=== PATIENT | male | born 1950 | race Caucasian/White ===

== ENCOUNTER → 2016-10-12 | Outpatient (CLI) | payer MEDICARE, OTHER | END | disposition home or self-care (01) | LOC: PCVCCLINIC 10:51 | PROVIDERS: ATTEND Internal Medicine | DX: I25.810 Atherosclerosis of coronary artery bypass graft(s) without angina pectoris (principal); I35.0 Nonrheumatic aortic (valve) stenosis; E78.00 Pure hypercholesterolemia, unspecified; I13.0 Hypertensive heart and chronic kidney disease with heart failure and stage 1 through stage 4 chronic kidney disease, or unspecified chronic kidney disease; E11.22 Type 2 diabetes mellitus with diabetic chronic kidney disease; I50.33 Acute on chronic diastolic (congestive) heart failure; N18.4 Chronic kidney disease, stage 4 (severe); I73.9 Peripheral vascular disease, unspecified; I77.89 Other specified disorders of arteries and arterioles; Z98.890 Other specified postprocedural states; Z79.4 Long term (current) use of insulin; Z95.1 Presence of aortocoronary bypass graft; Z87.891 Personal history of nicotine dependence; Z79.82 Long term (current) use of aspirin; Z88.8 Allergy status to other drugs, medicaments and biological substances | CPT/HCPCS: 80061; 93005; G0463 ==

== ENCOUNTER → 2016-11-16 | Outpatient (CLI) | payer MEDICARE, OTHER | END | disposition home or self-care (01) | LOC: PCVCCLINIC 15:19 | PROVIDERS: ATTEND Internal Medicine Cardiovascular Disease | DX: I25.10 Atherosclerotic heart disease of native coronary artery without angina pectoris (principal); I35.0 Nonrheumatic aortic (valve) stenosis; I65.23 Occlusion and stenosis of bilateral carotid arteries; E11.8 Type 2 diabetes mellitus with unspecified complications; R06.09 Other forms of dyspnea; E78.00 Pure hypercholesterolemia, unspecified; I10 Essential (primary) hypertension; I73.9 Peripheral vascular disease, unspecified; G47.30 Sleep apnea, unspecified; R94.31 Abnormal electrocardiogram [ECG] [EKG]; Z95.1 Presence of aortocoronary bypass graft; Z87.891 Personal history of nicotine dependence; Z79.84 Long term (current) use of oral hypoglycemic drugs; Z79.82 Long term (current) use of aspirin; Z79.899 Other long term (current) drug therapy | CPT/HCPCS: 93005; G0463 ==

== ENCOUNTER → 2017-03-30 | Outpatient (CLI) | payer MEDICARE, OTHER | END | disposition home or self-care (01) | LOC: PCVCIMAG 07:36 | DX: I25.810 Atherosclerosis of coronary artery bypass graft(s) without angina pectoris (principal); I12.9 Hypertensive chronic kidney disease with stage 1 through stage 4 chronic kidney disease, or unspecified chronic kidney disease; I65.23 Occlusion and stenosis of bilateral carotid arteries; N18.3 Chronic kidney disease, stage 3 (moderate); I73.9 Peripheral vascular disease, unspecified; E78.00 Pure hypercholesterolemia, unspecified; E11.22 Type 2 diabetes mellitus with diabetic chronic kidney disease; I08.3 Combined rheumatic disorders of mitral, aortic and tricuspid valves; G47.30 Sleep apnea, unspecified; R94.31 Abnormal electrocardiogram [ECG] [EKG]; Z98.890 Other specified postprocedural states; Z86.79 Personal history of other diseases of the circulatory system; Z95.1 Presence of aortocoronary bypass graft; Z87.891 Personal history of nicotine dependence; Z79.82 Long term (current) use of aspirin; Z79.4 Long term (current) use of insulin | CPT/HCPCS: 80061; 93005; 93306; 93880; 93925; G0463 ==

== ENCOUNTER → 2017-05-09 | Outpatient (CLI) | payer MEDICARE ==
[~2017-05-09] MED LIST: DIAZEPAM 10 MG TABLET.; EPINEPHrine 1 MG/ML VIAL; EPTIFIBATIDE BOLUS 2,000 MCG/ML 10ML VIAL. IV; HEPARIN SODIUM 5,000 UNIT/ML VIAL for PCVC.; IODIXANOL 270 MG/ML 100 ML VIAL.; IV NORMAL SALINE 1000ML BAG 1,000 ML; LIDOCAINE 1% Multi-Dose 20 ML VIAL.; MIDAZOLAM HCL/PF 2 MG/2 ML VIAL.; PRASUGREL 10 MG TABLET.; ceFAZolin SODIUM 1 GM VIAL; fentaNYL PF VIAL 100 MCG/2 ML VIAL; hydrALAZINE 20 MG/ML VIAL.
== END | disposition home or self-care (01) ==
LOC: PCVCINTER 08:30
DX: I70.213 Atherosclerosis of native arteries of extremities with intermittent claudication, bilateral legs (principal); I25.10 Atherosclerotic heart disease of native coronary artery without angina pectoris; I70.1 Atherosclerosis of renal artery
CPT/HCPCS: 36252; 37186; 37225; 75716; 76937; 99152; 99153; C1725; C1751; C1757; C1760; C1769; C1885; C1887; C1894; C2623; J0171; J0360; J0690; J1327; J1644; J2250; J3010; J7030

== ENCOUNTER → 2017-08-11 | Outpatient (CLI) | payer MEDICARE | END | disposition home or self-care (01) | LOC: PCVCIMAG 15:28 | DX: I65.23 Occlusion and stenosis of bilateral carotid arteries (principal); I73.9 Peripheral vascular disease, unspecified; I77.9 Disorder of arteries and arterioles, unspecified; I25.10 Atherosclerotic heart disease of native coronary artery without angina pectoris; I10 Essential (primary) hypertension; E11.8 Type 2 diabetes mellitus with unspecified complications; E78.00 Pure hypercholesterolemia, unspecified; I70.8 Atherosclerosis of other arteries; Z87.891 Personal history of nicotine dependence; Z79.899 Other long term (current) drug therapy; Z79.82 Long term (current) use of aspirin; Z88.8 Allergy status to other drugs, medicaments and biological substances; Z79.4 Long term (current) use of insulin | CPT/HCPCS: 93880; 93925; G0463 ==

== ENCOUNTER → 2017-09-29 | Outpatient (CLI) | payer MEDICARE | END | disposition home or self-care (01) | LOC: PCVCCLINIC 11:08 | DX: I25.10 Atherosclerotic heart disease of native coronary artery without angina pectoris (principal); I10 Essential (primary) hypertension; I73.9 Peripheral vascular disease, unspecified; E78.00 Pure hypercholesterolemia, unspecified; I27.20 Pulmonary hypertension, unspecified; I35.0 Nonrheumatic aortic (valve) stenosis; I65.23 Occlusion and stenosis of bilateral carotid arteries; R09.89 Other specified symptoms and signs involving the circulatory and respiratory systems; Z98.890 Other specified postprocedural states; Z95.1 Presence of aortocoronary bypass graft; Z88.8 Allergy status to other drugs, medicaments and biological substances; Z87.891 Personal history of nicotine dependence; Z79.899 Other long term (current) drug therapy; Z79.4 Long term (current) use of insulin | CPT/HCPCS: 80061; 93005; G0463 ==

== ENCOUNTER → 2018-04-25 | Outpatient (CLI) | payer MEDICARE ==
--- NOTE | 2018-04-25 15:45 | PCVCIMAG ---
APPROVED REPORT Study performed: 04/25/2018 13:11:37 EXAM: Comprehensive 2D, Doppler, and color-flow Echocardiogram Patient Location: Echo lab Status: routine BSA: 2.12 HR: 81 bpmBP: 112/78 mmHg Rhythm: NSR Other Information Study Quality: Adequate Technically limited study due to lung disease. Indications Pulmonary Hypertension CAD cabg, rheumatic aortic stenosis, rheumatic mitral stenosis 2D Dimensions IVSd: 16.61 (7-11mm)LVOT Diam: 21.32 (18-24mm) LVDd: 45.93 mm PWd: 16.27 (7-11mm) LVDs: 38.69 (25-40mm) Left Atrium: 44.10 (27-40mm) Aortic Root: 35.63 mm LV Single Plane 4CH: 41.80 % LV Single Plane 2CH: 52.34 % Biplane EF: 48.1 % Volumes Left Atrial Volume (Systole) Single Plane 4CH: 116.85 mLSingle Plane 2CH: 118.62 mL LA ESV Index: 61.00 mL/m2 Aortic Valve AoV Peak Abhay.: 4.07 m/s AO Peak Gr.: 66.42 mmHgLVOT Max P.48 mmHg AO Mean Gr.: 35.02 mmHgLVOT Mean P.59 mmHg AO V2 Mean: 2.77 m/sLVOT Max V: 1.17 m/s AO V2 VTI: 87.67 cm MARVIN (VTI): 1.19 [id number] V1 VTI: 29.26 cm MARVIN Vmax: 1.03 cm2 Mitral Valve MV Peak Gr.: 19.79 mmHg MV Mean Gr.: 9.48 mmHgE/A Ratio: 0.9 MV Decel. Time: 385.38 ms MV E Max Abhay.: 1.72 m/s MV A Abhay.: 1.92 m/s MV Max Abhay.: 2.22 m/s MV VTI: 533.51 mm MVA VTI: 195.79 mm2 MV PHT: 111.76 ms MVA (PHT): 1.89 cm2 IVRT: 103.81 ms Pulmonary Valve PV Peak Abhay.: 1.00 m/sPV Peak Gr.: 4.01 mmHg Pulmonary Vein P Vein S: 0.28 m/sP Vein A: 0.26 m/s P Vein D: 0.35 m/sP Vein A Dur.: 124.6 msec P Vein S/D Ratio: 0.80 Tricuspid Valve TR Peak Abhay.: 3.84 m/s TR Peak Gr.: 58.87 mmHg Left Ventricle The left ventricle is normal size. There is normal LV segmental wall motion. There is normal left ventricular wall thickness. Left ventricular systolic function is normal. The left ventricular ejection fraction is within the normal range. LVEF is 50-55%. Grade II - pseudonormal filling dynamics. Right Ventricle The right ventricle is normal size. The right ventricular systolic function is normal. Atria Left atrium is severely dilated. Right atrium is moderately dilated. Aortic Valve The aortic valve is severely calcified. No aortic regurgitation is present. There is moderate to severe valvular aortic stenosis. Calculated aortic valve area is 1 cm2 with maximum pressure gradient of 66 mmHg and mean pressure gradient of 35 mmHg. Mitral Valve Moderately calcified mitral valve with moderate mitral stenosis. There is trace mitral valve regurgitation noted. Moderate mitral stenosis. MVA by PHT is 1.9 cm2 with mean gradient of 9.5 mmHg and peak gradient of 19.8 mmHg. Tricuspid Valve The tricuspid valve is normal in structure. Moderate tricuspid regurgitation with PAP of 68 mmHg. Pulmonic Valve The pulmonary valve is normal in structure. There is no pulmonic valvular regurgitation. Great Vessels The aortic root is normal in size. IVC is normal in size and collapses >50% with inspiration. Pericardium There is no pericardial effusion. There is no pleural effusion. <Conclusion> The left ventricle is normal size. LVEF is 50-55%. Grade II - pseudonormal filling dynamics. The right ventricle is normal size. Left atrium is severely dilated. Right atrium is moderately dilated. Left atrium is severely dilated. Right atrium is moderately dilated. The aortic valve is severely calcified. There is moderate to severe valvular aortic stenosis. Calculated aortic valve area is 1 cm2 with maximum pressure gradient of 66 mmHg and mean pressure gradient of 35 mmHg. Moderately calcified mitral valve with moderate mitral stenosis. There is trace mitral valve regurgitation noted. Moderate mitral stenosis. MVA by PHT is 1.9 cm2 with mean gradient of 9.5 mmHg and peak gradient of 19.8 mmHg. Moderate tricuspid regurgitation with PAP of 68 mmHg. There is no pulmonic valvular regurgitation. The aortic root is normal in size. There is no pericardial effusion.
--- NOTE | 2018-04-25 15:53 | PCVCIMAG ---
APPROVED REPORT Laterality: Bilateral Indications Stenosis Doppler Spectral Velocity Analysis PSV / EDVPSV / EDV ECA (R) 129 / 11 cm/sECA (L) 225 / 11 cm/s dICA (R) 82 / 24 cm/sdICA (L) 75 / 21 cm/s Vinnie (R) 84 / 19 cm/smICA (L) 170 / 33 cm/s pICA (R) 76 / 19 cm/spICA (L) 214 / 50 cm/s Bulb (R) 46 / 10 cm/sBulb (L) 69 / 18 cm/s dCCA (R) 55 / 11 cm/sdCCA (L) 79 / 16 cm/s mCCA (R) 69 / 13 cm/smCCA (L) 87 / 16 cm/s Vert (R) 48 / 13 cm/sVert (L) 57 / 18 cm/s ICA/CCA 1.53ICA/CCA 2.71 Findings The right carotid bulb has moderate plaque. The right proximal internal carotid artery shows <40% stenosis. The right common carotid artery shows no significant stenosis. The right external carotid artery shows no significant stenosis. The left carotid bulb has moderately severe calcified plaque. The left proximal internal carotid artery shows 60-70% stenosis. The left common carotid artery shows <40% stenosis. The left external carotid artery shows >50% stenosis. Conclusion 1. Right internal carotid artery stenosis (<40%) 2. Left internal carotid artery stenosis (60-70%) 3. Left common carotid artery stenosis (<40%) 4. Antegrade vertebral flow Similar to a study dated July 2017
--- NOTE | 2018-04-25 18:07 | PCVCIMAG ---
EXAM: BILATERAL LOWER EXTREMITY ARTERIAL DUPLEX INDICATION: Peripheral Arterial Disease. Leg pain. FINDINGS: Right Leg: Common femoral and profunda femoral are patent. Occlusion of the [place] superficial femoral artery. Femoral-popliteal artery bypass maintaining adequate patency. Mid popliteal artery distal to the graft anastomosis shows 40-50% restenosis at site of prior intervention not felt be flow-limiting. Peroneal artery and posterior tibial artery are occluded. Anterior tibial artery is patent. Left Le-90% stenosis mid/distal left common femoral artery. Profunda femoral artery is patent. Mild stenosis origin superficial femoral artery. 80% stenosis distal [place] left superficial femoral artery. Popliteal artery is patent. Peroneal artery and posterior tibial arteries are occluded. The anterior tibial artery is patent. IMPRESSION: Previous right [id number] popliteal artery bypass graft maintaining satisfactory patency. 40-50% restenosis mid [place] right popliteal artery at site of prior intervention. 80-90% stenosis mid/distal left common femoral artery. 80% stenosis distal [place] left superficial femoral artery. 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 LOC:[id number]
== END | disposition home or self-care (01) ==
LOC: PCVCIMAG 13:19
PROVIDERS: ATTEND Internal Medicine Cardiovascular Disease
DX: I65.23 Occlusion and stenosis of bilateral carotid arteries (principal); I08.3 Combined rheumatic disorders of mitral, aortic and tricuspid valves; I27.20 Pulmonary hypertension, unspecified; I25.10 Atherosclerotic heart disease of native coronary artery without angina pectoris; I10 Essential (primary) hypertension; Z95.1 Presence of aortocoronary bypass graft
CPT/HCPCS: 36415; 80061; 93306; 93880; 93925; G0463

== ENCOUNTER → 2018-11-07 | Outpatient (CLI) | payer MEDICARE ==
--- NOTE | 2018-11-07 10:21 | PCVCIMAG ---
EXAM: BILATERAL LOWER EXTREMITY ARTERIAL DUPLEX INDICATION: Peripheral Arterial Disease. Leg pain. FINDINGS: Right Leg: Common femoral and profunda femoral arteries are patent. Occlusion throughout the [place] superficial femoral artery. Post surgical changes of [id number] popliteal bypass graft remains patent. Mild stenosis mid [place] popliteal artery at previous site of intervention is not flow-limiting. Peroneal artery and posterior tibial arteries are occluded and this is unchanged. Anterior tibial artery is patent. Left Leg: Increased systolic velocity of the junction of the common femoral and superficial femoral artery of 419 cm/s consistent with 90% stenosis which has shown some progression since April 2017 angiogram. Increased systolic velocity distal [place] superficial femoral artery 342 cm/s consistent with 80-90% stenosis. Popliteal artery is patent. The peroneal and posterior tibial arteries are occluded. The anterior tibial artery is patent throughout. IMPRESSION: Previous right [id number] popliteal artery bypass graft remains patent. Previous site of intervention mid [place] right popliteal artery shows mild restenosis at site of intervention not felt be flow-limiting. Unchanged occlusion right peroneal and posterior tibial arteries. 90% stenosis at the junction of the left common and origin superficial femoral artery. 80-90% stenosis distal [place] left superficial femoral artery. Unchanged occlusion left peroneal and posterior tibial arteries. LOC:[id number]
== END | disposition home or self-care (01) ==
LOC: PCVCIMAG 07:46
PROVIDERS: ATTEND Nuclear Medicine Nuclear Cardiology
DX: I73.9 Peripheral vascular disease, unspecified (principal); I77.9 Disorder of arteries and arterioles, unspecified; I25.10 Atherosclerotic heart disease of native coronary artery without angina pectoris; I10 Essential (primary) hypertension; E08.00 Diabetes mellitus due to underlying condition with hyperosmolarity without nonketotic hyperglycemic-hyperosmolar coma (NKHHC); I27.20 Pulmonary hypertension, unspecified; E78.5 Hyperlipidemia, unspecified; Z95.1 Presence of aortocoronary bypass graft; Z98.890 Other specified postprocedural states
CPT/HCPCS: 93925; G0463

== ENCOUNTER → 2018-12-01 | Outpatient (CLI) | payer MEDICARE | END | disposition home or self-care (01) | LOC: PCVCCLINIC 14:59 | PROVIDERS: ATTEND Internal Medicine Cardiovascular Disease | DX: I25.10 Atherosclerotic heart disease of native coronary artery without angina pectoris (principal); I12.9 Hypertensive chronic kidney disease with stage 1 through stage 4 chronic kidney disease, or unspecified chronic kidney disease; N18.3 Chronic kidney disease, stage 3 (moderate); E78.5 Hyperlipidemia, unspecified; E11.21 Type 2 diabetes mellitus with diabetic nephropathy; I77.9 Disorder of arteries and arterioles, unspecified; I73.9 Peripheral vascular disease, unspecified; I27.20 Pulmonary hypertension, unspecified; I35.0 Nonrheumatic aortic (valve) stenosis; Z95.1 Presence of aortocoronary bypass graft; Z86.79 Personal history of other diseases of the circulatory system; Z98.890 Other specified postprocedural states; Z79.4 Long term (current) use of insulin; Z88.8 Allergy status to other drugs, medicaments and biological substances | CPT/HCPCS: 36415; 80061; 93005; G0463 ==